=== PATIENT | female | born 1970 | race Caucasian/White ===

== ENCOUNTER 2018-05-26 00:26 | Emergency (ER) | payer BC ==
[~2018-05-26] VITALS: Ht 165.1 cm; Wt 109.0 kg
[2018-05-26] MEDS ORDERED: LEVETIRACETAM 500MG PREMIX 100 ML IV ONE (01:00)
[2018-05-26] MEDS ORDERED: KETOROLAC 30MG/ML VIAL IV ONE (01:30)
[2018-05-26 01:47] LABS: BASOPHILS % 0.3 % (0.0-2.0); HEMATOCRIT. 34.2 % (36.0-48.0); HEMOGLOBIN. 11.5 g/dL (12.0-16.0); LYMPHOCYTES % 10.1 % (20.0-50.0); MEAN CORPUSCULAR HEMOGLOBIN 23.7 pg (28.0-32.0); MEAN CORPUSCULAR VOLUME 70.6 fL (81.0-99.0); MONOCYTES % 3.6 % (2.0-8.0); PLATELET 269 x1000/uL (130-400); RED BLOOD CELL COUNT 4.85 mill/uL (4.2-5.4); RED CELL DISTRIBUTION WIDTH 15.1 % (11.6-14.6)
[2018-05-26 01:50] LABS: CHLORIDE 103 mEq/L (98-107)
[2018-05-26 05:24] VITALS: BP 146/88
== END 2018-05-26 05:43 | disposition home or self-care (01) ==
LOC: ER 00:26
DX: R56.9 Unspecified convulsions (principal); M25.571 Pain in right ankle and joints of right foot; E11.9 Type 2 diabetes mellitus without complications; R51 Headache; Z88.9 Allergy status to unspecified drugs, medicaments and biological substances
CPT/HCPCS: 36415; 73610; 73630; 80053; 82962; 85025; 96365; 96375; 99285; J1885; J1953; Z7610

== ENCOUNTER 2024-01-06 12:55 | Emergency (ER) | payer BC ==
[~2024-01-06] VITALS: Ht 160 cm; Wt 97.0 kg
[2024-01-06 13:00] VITALS: O2SAT 98
[2024-01-06] MEDS ORDERED: IBUP-2029 MT (14:32)
[2024-01-06 14:41] VITALS: BP 151/91; PULSE 90; RESP 18; TEMP 98.8
== END 2024-01-06 14:51 | disposition home or self-care (01) ==
LOC: ER 12:55
DX: S63.501A Unspecified sprain of right wrist, initial encounter (principal); E11.9 Type 2 diabetes mellitus without complications; W01.0XXA Fall on same level from slipping, tripping and stumbling without subsequent striking against object, initial encounter; Y93.89 Activity, other specified; Y92.89 Other specified places as the place of occurrence of the external cause; Y99.8 Other external cause status
CPT/HCPCS: 73110; 73130; 99284

== ENCOUNTER 2025-01-11 13:41 | Inpatient (IN) | payer BC ==
[~2025-01-11] VITALS: Ht 162.6 cm; Wt 92.8 kg
[~2025-01-11 13:41] MED LIST: IBUP-2029 MT
[2025-01-11 15:04] LABS: CARBON DIOXIDE 20 mEq/L (21-32); CHLORIDE 110 mEq/L (98-107); POTASSIUM 4.5 mEq/L (3.5-5.1); SODIUM 140 mEq/L (136-145)
[2025-01-11 15:05] LABS: CALCIUM 7.9 mg/dL (8.7-10.4)
[2025-01-11 15:09] LABS: CREATININE 2.2 mg/dL (0.6-1.0); TROPONIN I HIGH SENSITIVITY 7 ng/L (3.0-34)
[2025-01-11 15:10] LABS: GLUCOSE 153 mg/dL (70-105); UREA NITROGEN BLOOD 32 mg/dL (9-23)
[2025-01-11 15:11] LABS: ALANINE AMINOTRANSFERASE 9 IU/L (10-49); ALBUMIN 2.7 g/dL (3.2-4.8); ASPARTATE AMINOTRANSFERASE 11 IU/L (<34)
[2025-01-11 15:12] LABS: BILIRUBIN TOTAL 0.2 mg/dL (0.1-1.0)
[2025-01-11 15:13] LABS: BILIRUBIN DIRECT < 0.1 mg/dL (<=3.0); PROTEIN TOTAL 5.3 g/dL (6.0-8.3)
[2025-01-11] MEDS: LEVETIRACETAM 1000MG PREMIX 100 ML IV ONE (15:44)
[2025-01-11 15:57] LABS: BASOPHILS % 0.6 % (0.0-2.0); EOSINOPHILS % 1.9 % (0.0-5.0); HEMATOCRIT. 31.2 % (36.0-48.0); HEMOGLOBIN. 9.9 g/dL (12.0-16.0); LYMPHOCYTES % 7.7 % (20.0-50.0); MEAN CORPUSCULAR HEMOGLOBIN 24.5 pg (28.0-32.0); MEAN CORPUSCULAR HGB CONC 31.8 g/dL (31.0-37.0); MEAN CORPUSCULAR VOLUME 77.2 fL (81.0-99.0); MONOCYTES % 5.3 % (2.0-8.0); NEUTROPHILS % 84.5 % (40.0-76.0); PLATELET 492 x1000/uL (130-400); RED BLOOD CELL COUNT 4.04 mill/uL (4.2-5.4); WHITE BLOOD COUNT 11.8 x1000/uL (4.5-11.0)
[2025-01-11 15:58] LABS: DIFFERENTIAL COMMENT 1
[2025-01-11] MEDS: MORPHINE SULFATE 4 MG/ML INJ (FOR IV/IM USE) IV ONE (18:26)
[2025-01-11] MEDS: CALCIUM GLUCONATE 1GM PREMIX 50 ML IV ONE (20:53)
[2025-01-11] MEDS: LEVETIRACETAM 500MG TABLET PO SCH (21:30)
[2025-01-11] MEDS ORDERED: LACOSAMIDE 100MG TABLET PO SCH (21:30)
[2025-01-11] MEDS: LACOSAMIDE 100MG/10ML ORAL SOLN PO SCH (22:36)
[2025-01-12 02:46] LABS: CLARITY URINE CLEAR (CLEAR); COLOR URINE YELLOW (YELLOW); GLUCOSE URINE NEGATIVE (NEGATIVE); KETONES URINE NEGATIVE (NEGATIVE); LEUKOCYTE ESTERASE URINE 1+ (NEGATIVE); NITRITE URINE NEGATIVE (NEGATIVE); OCCULT BLOOD URINE TRACE (NEGATIVE); PH URINE 5.5 (4.5-8.0); PROTEIN URINE TRACE (NEGATIVE); SPECIFIC GRAVITY URINE 1.013 (1.005-1.030); UROBILINOGEN URINE 0.2 E.U./dL (0.2-1.0)
[2025-01-12 05:25] LABS: SQUAMOUS EPITHELIAL CELL URINE 1+ /lpf (RARE/1+)
[2025-01-12 05:26] LABS: RBC URINE 0-2 /hpf (0-2)
[2025-01-12 05:27] LABS: BACTERIA URINE NONE SEEN
[2025-01-12 09:00] VITALS: BP 118/60; PULSE 75; RESP 16; TEMP 36.5; O2SAT 100
[2025-01-12 11:02] VITALS: BP 118/60; PULSE 75; RESP 16; TEMP 36.3
[2025-01-12] MEDS ORDERED: LACO150T4 PO (12:42)
[2025-01-12] MEDS ORDERED: ONDA4TAB50 PO (12:42)
[2025-01-12] MEDS ORDERED: METH-773 PO (12:42)
[2025-01-12] MEDS ORDERED: TAMS-11 (12:42)
[2025-01-12] MEDS ORDERED: LUBI8CAP (12:42)
[2025-01-12] MEDS ORDERED: NIFE-71 PO (12:42)
[2025-01-12] MEDS ORDERED: SEVE800T25 PO (12:42)
[2025-01-12] MEDS ORDERED: ATOR10TA69 PO (12:42)
[2025-01-12] MEDS ORDERED: CALC0.5C10 PO (12:42)
[2025-01-12] MEDS ORDERED: ZONI100C45 PO (12:42)
[2025-01-12] MEDS ORDERED: OXYC5TAB3 PO (12:42)
[2025-01-12] MEDS ORDERED: ACETAMINOPHEN 325MG TABLET PO PRN (12:45)
[2025-01-12] MEDS ORDERED: NALOXONE HCL 0.4MG/ML VIAL IV PRN (12:45)
[2025-01-12] MEDS ORDERED: SEVELAMER HCL PO SCH (13:00)
[2025-01-12] MEDS ORDERED: CEFTRIAXONE 1GM/50ML 50 ML IV SCH (13:15)
[2025-01-12] MEDS: CEFTRIAXONE 1GM/50ML 50 ML IV SCH (14:30)
[2025-01-12] MEDS: IBUPROFEN 600MG TABLET PO SCH (15:49)
[2025-01-12 16:00] VITALS: BP 123/68; PULSE 76; RESP 20; TEMP 37; O2SAT 97
[2025-01-12] MEDS ORDERED: LORAZEPAM 2MG/ML INJ IV PRN (16:53)
[2025-01-12] MEDS: SEVELAMER CARBONATE 800 MG TABLET PO SCH (17:00)
[2025-01-12 20:00] VITALS: BP 114/61; PULSE 83; RESP 19; TEMP 35.9; O2SAT 99
[2025-01-12] MEDS: ZONISAMIDE 100MG CAPSULE PO SCH (23:22)
[2025-01-12] MEDS: HYDROCODONE/ACETAMINOPHEN 5/325MG TABLET PO PRN (23:27)
[2025-01-13 00:14] VITALS: BP 122/64; PULSE 85; RESP 16; TEMP 36.1; O2SAT 99
[2025-01-13 04:45] VITALS: BP 120/64; PULSE 72; RESP 19; TEMP 36.4; O2SAT 97
[2025-01-13 08:00] VITALS: BP 108/51; PULSE 73; RESP 16; TEMP 36.5; O2SAT 98
[2025-01-13 08:21] LABS: CALCIUM 7.7 mg/dL (8.7-10.4); POTASSIUM 4.3 mEq/L (3.5-5.1)
[2025-01-13 08:27] LABS: CREATININE 2.3 mg/dL (0.6-1.0)
[2025-01-13] MEDS: NIFEDIPINE XL 30MG TAB PO SCH (08:28)
[2025-01-13 08:37] LABS: BASOPHILS % 0.8 % (0.0-2.0); EOSINOPHILS % 5.2 % (0.0-5.0); HEMATOCRIT. 26.9 % (36.0-48.0); HEMOGLOBIN. 8.5 g/dL (12.0-16.0); LYMPHOCYTES % 15.5 % (20.0-50.0); MEAN CORPUSCULAR HEMOGLOBIN 24.5 pg (28.0-32.0); MEAN CORPUSCULAR HGB CONC 31.7 g/dL (31.0-37.0); MEAN CORPUSCULAR VOLUME 77.3 fL (81.0-99.0); MEAN PLATELET VOLUME 6.9 fl (7.4-10.4); MONOCYTES % 8.7 % (2.0-8.0); NEUTROPHILS % 69.8 % (40.0-76.0); PLATELET 391 x1000/uL (130-400); RED BLOOD CELL COUNT 3.48 mill/uL (4.2-5.4); RED CELL DISTRIBUTION WIDTH 22.9 % (11.6-14.6); WHITE BLOOD COUNT 7.7 x1000/uL (4.5-11.0)
[2025-01-13] MEDS ORDERED: MEDICATION NOT ON FORMULARY EA (Nifedipine (Nifedipine Er) 1 TAB) PO SCH (09:00)
[2025-01-13] MEDS: TAMSULOSIN HCL 0.4MG SR CAPSULE PO SCH (09:00)
[2025-01-13] MEDS ORDERED: MEDICATION NOT ON FORMULARY EA (Calcitriol 1 CAP) PO SCH (09:00)
[2025-01-13] MEDS: CALCITRIOL 0.25MCG CAPSULE PO SCH (09:01)
[2025-01-13] MEDS: METHOCARBAMOL 500MG TABLET PO SCH (09:01)
[2025-01-13] MEDS: ATORVASTATIN CALCIUM 10MG TABLET PO SCH (09:02)
[2025-01-13 09:49] LABS: ADD RBC MORPHOLOGY YES; DIFFERENTIAL COMMENT 1
[2025-01-13 12:00] VITALS: BP 110/61; PULSE 85; RESP 16; TEMP 36.5; O2SAT 99
[2025-01-13 16:00] VITALS: BP 115/70; PULSE 93; RESP 16; TEMP 36.8; O2SAT 99
[2025-01-13 16:44] LABS: ANISOCYTOSIS 2+; HYPOCHROMASIA 1+; MICROCYTOSIS 1+; PLATELET ESTIMATE NORMAL
[2025-01-13 20:51] VITALS: BP 124/63; PULSE 80; RESP 20; TEMP 36.2; O2SAT 98
[2025-01-14] VITALS: BP 106/45; PULSE 91; RESP 20; TEMP 36.1; O2SAT 98
[2025-01-14 03:58] VITALS: BP 132/62; PULSE 84; RESP 16; TEMP 36.6; O2SAT 97
[2025-01-14 07:43] LABS: CHLORIDE 112 mEq/L (98-107); POTASSIUM 4.5 mEq/L (3.5-5.1); SODIUM 142 mEq/L (136-145)
[2025-01-14 07:45] LABS: CALCIUM 7.7 mg/dL (8.7-10.4); CARBON DIOXIDE 20 mEq/L (21-32)
[2025-01-14 07:50] LABS: BASOPHILS % 0.8 % (0.0-2.0); CREATININE 2.3 mg/dL (0.6-1.0); GLUCOSE 116 mg/dL (70-105); HEMATOCRIT. 26.5 % (36.0-48.0); HEMOGLOBIN. 8.5 g/dL (12.0-16.0); LYMPHOCYTES % 16.1 % (20.0-50.0); MEAN CORPUSCULAR HEMOGLOBIN 24.8 pg (28.0-32.0); MEAN CORPUSCULAR VOLUME 77.3 fL (81.0-99.0); MEAN PLATELET VOLUME 7.3 fl (7.4-10.4); MONOCYTES % 7.8 % (2.0-8.0); NEUTROPHILS % 70.3 % (40.0-76.0); PLATELET 344 x1000/uL (130-400); RED BLOOD CELL COUNT 3.43 mill/uL (4.2-5.4); RED CELL DISTRIBUTION WIDTH 22.7 % (11.6-14.6); WHITE BLOOD COUNT 8.1 x1000/uL (4.5-11.0)
[2025-01-14 07:51] LABS: ALANINE AMINOTRANSFERASE < 7 IU/L (10-49); UREA NITROGEN BLOOD 37 mg/dL (9-23)
[2025-01-14 07:52] LABS: ALBUMIN 2.6 g/dL (3.2-4.8); CREATINE KINASE 19 IU/L (34-145)
[2025-01-14 07:53] LABS: BILIRUBIN TOTAL < 0.2 mg/dL (0.1-1.0); PHOSPHORUS 4.5 mg/dL (2.5-4.9)
[2025-01-14 08:00] VITALS: BP 123/60; PULSE 76; RESP 18; TEMP 36.7; O2SAT 97
[2025-01-14 09:04] LABS: BILIRUBIN DIRECT < 0.1 mg/dL (<=3.0)
[2025-01-14 09:05] LABS: ASPARTATE AMINOTRANSFERASE < 8 IU/L (<34)
[2025-01-14 10:04] LABS: DIFFERENTIAL COMMENT 1
[2025-01-14 12:00] VITALS: BP 131/71; PULSE 75; RESP 22; TEMP 36.7; O2SAT 98
[2025-01-14 16:00] VITALS: BP 119/59; PULSE 79; RESP 18; TEMP 36.2; O2SAT 97
[2025-01-14 19:54] VITALS: BP 123/71; PULSE 107; RESP 19; TEMP 36.4; O2SAT 97
[2025-01-14] MEDS: LACTULOSE 20G/30ML UDC PO SCH (21:59)
[2025-01-15] VITALS (8 sets, daily range): BP systolic 107–134; BP diastolic 54–68; PULSE 81–93; RESP 18–20; TEMP 36.3–36.6; O2SAT 95–98
[2025-01-15] MEDS: ONDANSETRON HCL 4MG/2ML INJ IV PRN (00:01)
[2025-01-15 06:44] LABS: EOSINOPHILS % 5.3 % (0.0-5.0); HEMATOCRIT. 27.9 % (36.0-48.0); HEMOGLOBIN. 9.1 g/dL (12.0-16.0); LYMPHOCYTES % 21.6 % (20.0-50.0); MEAN CORPUSCULAR HEMOGLOBIN 24.9 pg (28.0-32.0); MEAN CORPUSCULAR HGB CONC 32.6 g/dL (31.0-37.0); MEAN CORPUSCULAR VOLUME 76.5 fL (81.0-99.0); MEAN PLATELET VOLUME 7.1 fl (7.4-10.4); MONOCYTES % 6.8 % (2.0-8.0); NEUTROPHILS % 65.3 % (40.0-76.0); PLATELET 381 x1000/uL (130-400); RED BLOOD CELL COUNT 3.64 mill/uL (4.2-5.4); RED CELL DISTRIBUTION WIDTH 22.8 % (11.6-14.6); WHITE BLOOD COUNT 7.8 x1000/uL (4.5-11.0)
[2025-01-15 07:08] LABS: CARBON DIOXIDE 22 mEq/L (21-32); CHLORIDE 114 mEq/L (98-107); POTASSIUM 4.3 mEq/L (3.5-5.1); SODIUM 146 mEq/L (136-145)
[2025-01-15 07:14] LABS: CREATININE 2.2 mg/dL (0.6-1.0); GLUCOSE 97 mg/dL (70-105)
[2025-01-15 07:15] LABS: UREA NITROGEN BLOOD 33 mg/dL (9-23)
[2025-01-15 07:17] LABS: PHOSPHORUS 4.7 mg/dL (2.5-4.9)
[2025-01-15 07:32] LABS: DIFFERENTIAL COMMENT 1
== END 2025-01-15 21:24 | DRG 101 ==
LOC: ER 13:41 → 7WST 20:28 → EDBEDREQ 20:33 → EDBEDREQTM 20:33 → 8EST 01-15 15:33
PROVIDERS: ADMIT Internal Medicine; ATTEND Internal Medicine
PROC: 4A00X4Z Measurement of Central Nervous Electrical Activity, External Approach (ICD-10-PCS; principal; 2025-01-13)
DX: G40.301 Generalized idiopathic epilepsy and epileptic syndromes, not intractable, with status epilepticus (principal); N17.9 Acute kidney failure, unspecified; N39.0 Urinary tract infection, site not specified; E44.0 Moderate protein-calorie malnutrition; E11.65 Type 2 diabetes mellitus with hyperglycemia; I12.9 Hypertensive chronic kidney disease with stage 1 through stage 4 chronic kidney disease, or unspecified chronic kidney disease; E83.51 Hypocalcemia; E88.09 Other disorders of plasma-protein metabolism, not elsewhere classified; E66.9 Obesity, unspecified; D64.9 Anemia, unspecified; E11.22 Type 2 diabetes mellitus with diabetic chronic kidney disease; E78.5 Hyperlipidemia, unspecified; N18.30 Chronic kidney disease, stage 3 unspecified; N31.9 Neuromuscular dysfunction of bladder, unspecified; Z79.899 Other long term (current) drug therapy; Z82.49 Family history of ischemic heart disease and other diseases of the circulatory system; Z83.3 Family history of diabetes mellitus
CPT/HCPCS: 36415; 71045; 72110; 73030; 76770; 80048; 80076; 80339; 81003; 82550; 83735; 84100; 84484; 85025; 93005; 95816; 97162; 97166; 99285; C1893; J0610; J0696; J1953; J2270; J2405